=== PATIENT | male | born 1980 | race African-American/Black ===

== ENCOUNTER 2023-03-04 09:44 | Emergency (ER) | payer SELFPAY ==
[2023-03-04 09:49] VITALS: BP 140/94; PULSE 58; RESP 18; TEMP 36.6; O2SAT 99
--- NOTE | 2023-03-04 10:08 | ED.GENADULT ---
HPI - General Adult General Chief complaint: Unspecified Stated complaint: swollen lip Time Seen by Provider: 03/04/23 09:58 Source: patient Mode of arrival: ambulatory Limitations: no limitations History of Present Illness HPI narrative: This is a 42-year-old male that presents to the emergency department for swelling to the upper lip. Noted since about 10 PM last night. He does not report the area is itchy or painful. He has no other rash or itching. No swelling in his mouth or of his tongue. He reports he had an area in the center of the swelling that he got a small amount of drainage from. Denies fevers. Related Data Allergies Allergy/AdvReac Type Severity Reaction Status Date / Time No Known Allergies Allergy Verified 03/04/23 09:44 Review of Systems Review of Systems: CONSTITUTIONAL: Denies fever SKIN: Denies rash or itching. All systems reviewed & are unremarkable except as noted in HPI and below PMFSH Past Medical History Medical History (Updated 03/04/23 @ 10:15 by Citlali Webster PA-C) No active medical problems Social History Social History (Updated 03/04/23 @ 10:13 by Citlali Webster PA-C) Alcohol intake: current Exam Narrative: GENERAL: Well-appearing, well-nourished, and in no acute distress. HEAD: Normocephalic, atraumatic. EYES: EOMI. ENT: Mucous membranes moist. Oropharynx without tonsillar hypertrophy exudate or other lesions. Left side of the upper lip with swelling noted. No overt erythema or warmth. No other swelling of the tongue or mouth. Small scab in the center of the swollen area NECK: Supple. No adenopathy or masses CHEST: Clear to auscultation. No respiratory distress. No wheezes rales or rhonchi HEART: Regular rate and rhythm. No murmur heard. Normal peripheral pulses. EXTREMITIES: Normal range of motion. No edema. SKIN: Warm, dry, no rash. NEURO: No focal deficits. Alert and oriented x3. PSYCH: Normal mood and affect Course Course Emergency Course: Patient and family agree with plan of care Vital Signs Vital signs: Vital Signs Temperature 98 F 03/04/23 09:49 Pulse Rate 58 L 03/04/23 09:49 Respiratory Rate 18 03/04/23 09:49 Blood Pressure 140/94 H 03/04/23 09:49 Pulse Oximetry 99 03/04/23 09:49 Oxygen Delivery Room Air 03/04/23 09:49 Temperature 98 F 03/04/23 09:49 Pulse Rate 58 L 03/04/23 09:49 Respiratory Rate 18 03/04/23 09:49 Blood Pressure 140/94 H 03/04/23 09:49 Pulse Oximetry 99 03/04/23 09:49 Oxygen Delivery Room Air 03/04/23 09:49 Medical Decision Making MDM Narrative Medical decision making narrative: Patient presents to the emergency department for swelling to his upper lip. Noted since last night. He is afebrile and nontoxic-appearing. Patient does not report any pain or itching to the area. He does report that he got a little drainage from a central punctum. Will be started on oral antibiotic. There does not appear to be any further abscess on exam. He is visiting from out of town. Instructed to follow-up with primary provider back home. He was given warnings to return to the ER Vital Signs Vital Signs: Vital Signs Temperature 98 F 03/04/23 09:49 Pulse Rate 58 L 03/04/23 09:49 Respiratory Rate 18 03/04/23 09:49 Blood Pressure 140/94 H 03/04/23 09:49 Pulse Oximetry 99 03/04/23 09:49 Oxygen Delivery Room Air 03/04/23 09:49 Temperature 98 F 03/04/23 09:49 Pulse Rate 58 L 03/04/23 09:49 Respiratory Rate 18 03/04/23 09:49 Blood Pressure 140/94 H 03/04/23 09:49 Pulse Oximetry 99 03/04/23 09:49 Oxygen Delivery Room Air 03/04/23 09:49 Critical Care Time Critical Care Time Critical Care Time: No Discharge Plan Discharge Clinical Impression: Swelling of upper lip Additional Instructions: Return to the emergency department if you experience fever, swelling in your mouth, difficulty breathing, trouble swallowing, or any other symptoms t
== END 2023-03-04 10:38 | disposition home or self-care (01) ==
LOC: ANHED 10:31
PROVIDERS: Emergency Provider Physician Assistant
DX: R22.0 Localized swelling, mass and lump, head (principal)
CPT/HCPCS: 99283